=== PATIENT | female | born 1995 | race Caucasian/White ===

== ENCOUNTER 2018-05-14 18:29 | Emergency (ER) | payer BC, OTHER ==
[~2018-05-14 18:29] MED LIST: KET10 PO; MULT1CAP59 PO; PER PO
--- NOTE | 2018-05-14 18:32 | ER Report ---
History and Physical Time Seen By MD: 18:32 HPI/ROS CHIEF COMPLAINT: cut finger HISTORY OF PRESENT ILLNESS: This is a 22 year old female. She cut her left 3rd finger while preparing dinner about 20 minutes prior to coming to the ER. Normal sensation and movement is not compromised. Last tetanus was about 5 years ago. Allergies: Coded Allergies: No Known Drug Allergies (Unverified , 05/14/18) Home Meds Reported Medications Escitalopram Oxalate (LEXAPRO) 20 Mg Tablet, 10 MG PO QDAY, TAB 05/14/18 Discontinued Reported Medications Ketorolac Tromethamine (Toradol) 10 Mg Tab, 10 MG PO Q6H take one tablet by mouth every 6 hours for 5 days. take this medication with food. 11/03/11 Oxycodone/Acetaminophen (OXYCODONE/ACETAMINOPHEN 5MG/325 MG) 5 Mg/325 Mg Tab, 1 - 2 TAB PO Q4-6H PRN take 1-2 tablets by mouth every 4-6 hours as needed for pain 11/03/11 Multivitamins (Multivitamin) 1 Each Capsule, 1 EACH PO DAILY 11/01/11 Reviewed Nurses Notes: Yes Constitutional Vital Sign - Last 24 Hours 05/14/18 18:37 Temp 99.4 Pulse 92 Resp 12 Pulse Ox 94 O2 Delivery Room Air Physical Exam General: Alert, no distress. Skin: 1.5cm cut on 3rd finger left hand. Musculoskeletal: Normal motor function, no tendon compromise with normal strength and function. Neuro: Normal sensation. Cardiovascular: Normal cap refill. Bleeding controlled. Medical Decision Making ED Course/Re-evaluation ED Course Procedure: Laceration Repair Verbal consent from patient after discussing repair options, risks and benefits. Wound cleaned extensively with Hibiclens and saline. Anesthesia: Local 1% lidocaine without epinephrine and 0.5% bupivacaine without epinephrine. Location: Third finger lateral surface middle phalanx. Length: 1.5 cm. Character: Just in the subcutaneous tissue. There were no deep structures involved. No tendon injury was identified. Wound repair: 3 interrupted 4-0 Prolene sutures. The wound repair was simple and performed by myself. Wound care instructions discussed. Sutures need to be removed in 7 days. Tetanus booster given. Decision to Disposition Date: May 14, 2018 Decision to Disposition Time: 19:12 Depart Departure Latest Vital Signs Vital Signs Date Time Temp Pulse Resp B/P (MAP) Pulse Ox O2 Delivery O2 Flow Rate FiO2 05/14/18 18:37 99.4 92 12 94 Room Air Impression: Primary Impression: Finger laceration Condition: Improved Disposition: HOME OR SELF-CARE Patient Instructions: Finger Laceration (ED) Additional Instructions: Wound Care: Wash the wound once a day with soap and water. Dry the wound and apply a small amount of antibiotic ointment with a clean dressing. If the dressing becomes wet or dirty, repeat cleaning and dressing as above. No soaking the wound; no swimming. Stitches need to be removed in 7 days. Pain Control: Use Tylenol or ibuprofen for pain. Using and ice pack can help reduce swelling. Problem Qualifiers Primary Impression: Finger laceration Encounter type: initial encounter Finger: middle finger Damage to nail status: with damage Foreign body presence: with foreign body Laterality: left Qualified Codes: S61.323A - Laceration with foreign body of left middle finger with damage to nail, initial encounter FE DUNN MD May 14, 2018 18:32
[2018-05-14] MEDS ORDERED: ESCI20TA38 PO (18:35)
[2018-05-14] MEDS ORDERED: DIPHTH/TETANUS/ACEL. PERTUSSIS IM ONLY ONE (18:45)
== END 2018-05-14 19:27 | disposition home or self-care (01) ==
LOC: ER 18:40
DX: S61.213A Laceration without foreign body of left middle finger without damage to nail, initial encounter (principal); W45.8XXA Other foreign body or object entering through skin, initial encounter; Y93.G3 Activity, cooking and baking
CPT/HCPCS: 90471; 90715; 99283